=== PATIENT | male | born 1980 | race Caucasian/White ===

== ENCOUNTER 2022-08-25 17:19 | Emergency (ER) | payer BC ==
[2022-08-25 17:42] VITALS: BP 177/90; PULSE 98; RESP 18; TEMP 98.5; BMI 34.2
== END 2022-08-25 17:58 | disposition home or self-care (01) ==
LOC: FER 17:19
DX: S46.812A Strain of other muscles, fascia and tendons at shoulder and upper arm level, left arm, initial encounter (principal); M25.512 Pain in left shoulder; X50.0XXA Overexertion from strenuous movement or load, initial encounter; Y93.H2 Activity, gardening and landscaping; Y92.007 Garden or yard of unspecified non-institutional (private) residence as the place of occurrence of the external cause
CPT/HCPCS: 99283-25